=== PATIENT | female | born 1945 | race Caucasian/White ===

== ENCOUNTER 2021-10-25 11:13 | Emergency (ER) | payer MEDICARE, MEDICAID ==
[~2021-10-25] VITALS: Ht 167.6 cm; Wt 73.0 kg
[2021-10-25 12:18] LABS: BASOPHILS % 1.2 % (0.0-2.0); EOSINOPHILS % 1.5 % (0.0-5.0); HEMATOCRIT. 31.8 % (36.0-48.0); HEMOGLOBIN. 10.9 g/dL (12.0-16.0); LYMPHOCYTES % 21.7 % (20.0-50.0); MEAN CORPUSCULAR HEMOGLOBIN 30.9 pg (28.0-32.0); MEAN PLATELET VOLUME 7.9 fl (7.4-10.4); MONOCYTES % 1.1 % (2.0-8.0); NEUTROPHILS % 74.5 % (40.0-76.0); PLATELET 373 x1000/uL (130-400); RED BLOOD CELL COUNT 3.53 mill/uL (4.2-5.4); RED CELL DISTRIBUTION WIDTH 16.1 % (11.6-14.6)
[2021-10-25 12:21] LABS: CHLORIDE 104 mEq/L (98-107)
[2021-10-25 14:20] VITALS: BP 128/53
== END 2021-10-25 14:31 | disposition home or self-care (01) ==
LOC: ER 11:40
DX: R55 Syncope and collapse (principal); K59.00 Constipation, unspecified; E11.9 Type 2 diabetes mellitus without complications; I10 Essential (primary) hypertension; Z85.9 Personal history of malignant neoplasm, unspecified
CPT/HCPCS: 36415; 80048; 85025; 93005; 99284